=== PATIENT | female | born 1995 | race Caucasian/White ===

== ENCOUNTER 2017-03-31 08:45 | Emergency (ER) | payer BC ==
[2017-03-31] MEDS ORDERED: IBUPROFEN 600 MG TAB PO STA (09:32)
[2017-03-31] MEDS ORDERED: ACETAMINOPHEN TAB 500 MG TAB PO STA (09:32)
[2017-03-31] MEDS ORDERED: ONDANSETRON ODT 4 MG TAB PO STA (09:39)
[2017-03-31 10:09] VITALS: RESP 19
--- NOTE | 2017-03-31 10:29 | XR ---
EXAMINATION TYPE: XR chest 2V DATE OF EXAM: 03/31/2017 COMPARISON: NONE INDICATION: Cough flulike symptoms fever TECHNIQUE: Frontal and lateral views of the chest are obtained. FINDINGS: The heart size is normal. The pulmonary vasculature is normal. The lungs are clear. IMPRESSION: 1. No acute pulmonary process.
[2017-03-31] MEDS ORDERED: SODIUM CHLORIDE 0.9% 1,000 ML IV STA (10:54)
--- NOTE | 2017-03-31 10:59 | ED ---
General Adult HPI - General Chief complaint: Fever Stated complaint: Dx STREP, POSS PNEUMONIA Time Seen by Provider: 03/31/17 09:22 Source: patient, family, RN notes reviewed Mode of arrival: ambulatory Limitations: no limitations - History of Present Illness Initial comments: Patient 21-year-old female no significant past medical history, presenting to the emergency room today with chief complaint of strep throat and increased bodyaches and fever. Patient doesn't that she was diagnosed with strep throat 3 days ago. Started on antibiotics taking amoxicillin twice a day 500 mg. She states that she began having some body aches last night. She states she has had some fevers. Feeling hot and cold or chills. Patient does admit to cough congestion. She denies any other complaints or symptoms currently. Patient denies any recent shortness of breath, chest pain, back pain, abdominal pain, vomiting, numbness or tingling, dysuria or hematuria, constipation or diarrhea, visual changes, or any other complaints. - Related Data Home Medications Medication Instructions Recorded Confirmed Amoxicillin 1,000 mg PO DAILY 03/31/17 03/31/17 Etonogestrel [Nexplanon] 1 implant SQ [id number] 03/31/17 03/31/17 Ibuprofen 200 - 800 mg PO Q6H PRN 03/31/17 03/31/17 Previous Rx's Medication Instructions Recorded Amoxicillin 500 mg PO DAILY #10 day 03/31/17 Ondansetron Odt [Zofran ODT] 4 mg PO Q8HR PRN #20 tab 03/31/17 Oseltamivir [Tamiflu] 75 mg PO Q12HR 5 Days cap 03/31/17 Allergies Allergy/AdvReac Type Severity Reaction Status Date / Time No Known Allergies Allergy Verified 03/31/17 09:26 Review of Systems ROS Statement: Those systems with pertinent positive or pertinent negative responses have been documented in the HPI. ROS Other: All systems not noted in ROS Statement are negative. Past Medical History Past Medical History: Hyperlipidemia History of Any Multi-Drug Resistant Organisms: None Reported Past Surgical History: No Surgical Hx Reported Past Psychological History: Anxiety Smoking Status: Never smoker Past Alcohol Use History: Occasional Past Drug Use History: None Reported General Exam - General Exam Comments Initial Comments: General: The patient is awake and alert, in no distress, and does not appear acutely ill. Eye: Pupils are equal, round and reactive to light, extra-ocular movements are intact. No nystagmus. There is normal conjunctiva bilaterally. No signs of icterus. Ears, nose, mouth and throat: There are moist mucous membranes and no oral lesions. Neck: The neck is supple, there is no tenderness or JVD. Cardiovascular: There is a regular rate and rhythm. No murmur, rub or gallop is appreciated. Respiratory: Lungs are clear to auscultation, respirations are non-labored, breath sounds are equal. No wheezes, stridor, rales, or rhonchi. Musculoskeletal: Normal ROM, no tenderness. Strength 5/5. Sensation intact. Pulses equal bilaterally 2+. Neurological: A&O x 3. CN II-XII intact, There are no obvious motor or sensory deficits. Coordination appears grossly intact. Speech is normal. Skin: Skin is warm and dry and no rashes or lesions are noted. Psychiatric: Cooperative, appropriate mood & affect, normal judgment. Limitations: no limitations Course Vital Signs 03/31/17 03/31/17 08:54 10:08 Temperature 100.8 F H 102.3 F H Pulse Rate 112 H 109 H Respiratory 18 19 Rate Blood Pressure 139/62 125/65 O2 Sat by Pulse 100 98 Oximetry Medical Decision Making - Medical Decision Making Patient reexamined at this time shows no signs of distress she is tolerating by mouth fluids here in emergency room. She does state she feels very dry and states that she would like to have IV prior to being discharged. She states that she feel more comfortable this way. Patient was given some nausea medication for her nausea will be discharged home and started on Tamiflu. She' ll have an imbalance continue with amoxicillin but however she is only taking 2 pills twice a day and advised to begin starting to take 3 times daily. Advised patient that she should follow-up family doctor return here to the emergency room symptoms increase worsen or for any other concerns. - Lab Data Lab Results 03/31/17 Range/Units 09:36 Urine HCG, Qual Not Detected (Not Detectd) Disposition Clinical Impression: Strep throat, Influenza Disposition: HOME SELF-CARE Condition: Good Instructions: Influenza (ED) Additional Instructions: Please use medication as discussed. Please follow-up with family doctor in the next 2 days of symptoms have not improved. Please return to emergency room if the symptoms increase or worsen or for any other concerns. Prescriptions: Amoxicillin 500 mg PO DAILY #10 day Ondansetron Odt [Zofran ODT] 4 mg PO Q8HR PRN #20 tab PRN Reason: Nausea Oseltamivir [Tamiflu] 75 mg PO Q12HR 5 Days cap Referrals: Kerrie Simmons III, MD [Primary Care Provider] - 1-2 days Time of Disposition: 10:57
[2017-03-31 11:57] VITALS: BP 119/58; PULSE 96; TEMP 98.9
== END 2017-03-31 12:23 | disposition home or self-care (01) ==
LOC: EC 08:45
DX: J11.1 Influenza due to unidentified influenza virus with other respiratory manifestations (principal); Z97.5 Presence of (intrauterine) contraceptive device
CPT/HCPCS: 71046; 81025; 96360; 99283

== ENCOUNTER → 2017-04-21 | Outpatient (CLI) | payer BC ==
--- NOTE | 2017-04-21 07:58 | US ---
EXAMINATION TYPE: US abdomen limited DATE OF EXAM: 04/21/2017 COMPARISON: NONE CLINICAL HISTORY: R10.11 RUQ pain/K81.1 cholecystis. EXAM MEASUREMENTS: Liver Length: 15.1 cm Gallbladder Wall: 0.2 cm CBD: 0.3 cm Right Kidney: 11.1 x 4.2 x 5.4 cm Pancreas: Tail obscured by overlying bowel gas Liver: wnl Gallbladder: wnl Evidence for sonographic Duran's sign: patient tender here CBD: wnl Right Kidney: wnl IMPRESSION: Right upper quadrant tenderness during the examination, however no sonographic evidence f or acute cholecystitis. HIDA with CCK scan could be performed to evaluate for biliary dyskinesia or c hronic cholecystitis.
--- NOTE | 2017-04-21 12:34 | NM ---
EXAMINATION TYPE: NM hepatobiliary w CCK DATE OF EXAM: 04/21/2017 COMPARISON: Ultrasound abdomen same date HISTORY: Right upper quadrant pain TECHNIQUE: After the intravenous administration of 5.3 mCi Tc 99m Mebrofenin hepatobiliary scintigrap hy is performed. Immediate images post injection. FINDINGS: There is satisfactory initial accumulation of tracer by the liver. The gallbladder is visualized wit hin 6 minutes. The small bowel activity is noted within a minutes. At one hour CCK was administered , patient was injected with 1.75 mcg of Kinevac, and gallbladder ejection fraction is calculated at 8 4 %. Therefore there is no scintigraphic evidence of cystic or common bile duct obstruction to sugge st acute cholecystitis or gallbladder dyskinesia. IMPRESSION: No evidence of cystic duct obstruction. The bladder ejection fraction is 84%, patient exp erienced nausea with Kinevac administration
== END | disposition home or self-care (01) ==
LOC: RADUSMAIN 06:59
PROVIDERS: ATTEND Surgery
DX: R10.811 Right upper quadrant abdominal tenderness (principal); K81.1 Chronic cholecystitis
CPT/HCPCS: 76705; 78227; A9537; J2805

== ENCOUNTER 2017-05-12 06:47 | Day surgery (SDC) | payer BC ==
[2017-05-10 08:57] VITALS: BMI 29.3
[~2017-05-12 06:47] MED LIST: DEXAMETHASONE SOD PHOSPHATE 10 MG/ML 1 ML VIAL IV ONE; HEPARIN SODIUM,PORCINE 5,000 UNIT/ML 1 ML VIAL SQ ONE; LACTATED RINGERS 1,000 ML IV SCH; LIDOCAINE 1% 20 ML VIAL (10MG/ML) FOR IV START INTRADERMA PRN; MIDAZOLAM 2 MG/2 ML VIAL IV PRN; MORPHINE SULFATE 4 MG/ML SYRINGE IV PRN; ONDANSETRON 4 MG/2 ML VIAL IVP ONE; SCOPOLAMINE 1.5MG/72HR PATCH TRANSDERM ONE; ceFAZolin IN SWFI 2 GM/20 ML SYRINGE IVP ONE
--- NOTE | 2017-05-12 07:58 | P.GSHP ---
History of Present Illness H&P Date: 05/12/17 Chief Complaint: Right upper quadrant pain This a 21-year-old female who's had complaints of right quadrant pain. Her recent HIDA scan shows abnormal ejection fraction. Patient will undergo laparoscopic ostectomy for chronic cholecystitis. Past Medical History Past Medical History: Hyperlipidemia Additional Past Medical History / Comment(s): gallbladder disorder History of Any Multi-Drug Resistant Organisms: None Reported Past Surgical History: No Surgical Hx Reported Additional Past Surgical History / Comment(s): egd Past Anesthesia/Blood Transfusion Reactions: Family History of Problems w/ Anesthesia Additional Past Anesthesia/Blood Transfusion Reaction / Comment(s): PONV, MOTION SICKNESS Smoking Status: Never smoker - Past Family History Father Family Medical History: Cancer, Deep Vein Thrombosis (DVT) Medications and Allergies Home Medications Medication Instructions Recorded Confirmed Type Etonogestrel [Nexplanon] 1 implant SQ ONCE 03/31/17 05/12/17 History Fexofenadine HCl [Lisa Allergy] 180 mg PO DAILY 05/10/17 05/12/17 History Fluticasone Nasal [place] [Flonase 2 spr EA NOSTRIL DAILY 05/10/17 05/12/17 History Nasal [place]] Allergies Allergy/AdvReac Type Severity Reaction Status Date / Time No Known Allergies Allergy Verified 05/10/17 08:51 Surgical - Exam Vital Signs Temp Pulse Resp BP Pulse Ox 97.5 F L 78 16 113/69 95 05/12/17 07:05 05/12/17 07:05 05/12/17 07:05 05/12/17 07:05 05/12/17 07:05 - General well developed, no distress - Eyes PERRL - ENT normal pinna - Neck no masses - Respiratory normal expansion - Cardiovascular Rhythm: regular - Abdomen Abdomen: soft, non tender Assessment and Plan Assessment: Chronic cholecystitis. We'll perform laparoscopic cholecystectomy.
[2017-05-12] MEDS ORDERED: PROPOFOL 10 MG/ML 20 ML VIAL IV ONE (08:01)
[2017-05-12] MEDS ORDERED: MIDAZOLAM 2 MG/2 ML VIAL ONE (08:01)
[2017-05-12] MEDS ORDERED: fentaNYL (PF) 50 MCG/ML 2 ML AMP ONE (08:01)
[2017-05-12] MEDS ORDERED: GLYCOPYRROLATE 0.2 MG/ML 2 ML VIAL ONE (08:01)
[2017-05-12] MEDS ORDERED: ROCURONIUM BROMIDE 10 MG/ML 10 ML VIAL IV ONE (08:01)
[2017-05-12] MEDS ORDERED: KETOROLAC 30 MG/ML 1 ML VIAL ONE (08:01)
[2017-05-12] MEDS ORDERED: SUCCINYLCHOLINE CHLORIDE 100 MG/5 ML SYR IV ONE (08:01)
[2017-05-12] MEDS ORDERED: NEOSTIGMINE 1 MG/ML 10 ML VIAL ONE (08:01)
[2017-05-12] MEDS ORDERED: LIDOCAINE 1% INJ 10MG/ML (20 ML MDV) ONE (08:01)
[2017-05-12] MEDS ORDERED: BUPIVACAINE (PF) 0.5% 30 ML VIAL SQ ONE (08:21)
[2017-05-12 08:54] VITALS: TEMP 97.3
[2017-05-12 09:08] VITALS: RESP 16
[2017-05-12] MEDS ORDERED: MORPHINE SULFATE 4 MG/ML SYRINGE IVP ONE (09:25)
[2017-05-12] MEDS ORDERED: LACTATED RINGERS 1,000 ML IV ONE (10:00)
[2017-05-12] MEDS ORDERED: HYDROcodone/APAP 7.5-325MG 1 EACH TAB PO ONE (10:22)
[2017-05-12] MEDS ORDERED: METOCLOPRAMIDE 5 MG/ML 2 ML VIAL IVP STA (11:34)
[2017-05-12 12:02] VITALS: BP 111/72; PULSE 67
--- NOTE | 2017-05-25 12:24 | P.OP ---
Date of Procedure: 05/25/17 Preoperative Diagnosis: Chronic cholecystitis Postoperative Diagnosis: Chronic cholecystitis Procedure(s) Performed: Laparoscopic cholecystectomy Anesthesia: KARY Surgeon: Favian Dumont Estimated Blood Loss (ml): 5 Pathology: other (gAll bladder) Condition: stable Disposition: PACU Description of Procedure: The patient was placed on the operating table. The patient received a general endotracheal tube anesthesia. The patients abdomen was prepped and draped in the usual sterile fashion. Through an infraumbilical stab incision, the fascia of the anterior abdominal wall was grasped with a pair of Kochers and then the Veress needle was placed in the peritoneal cavity. Position of the Veress needle was confirmed with positive drop test. The abdomen was then insufflated. After adequate insufflation, the 10 mm trocar was placed in the peritoneal cavity. Following this the laparoscope was placed in the peritoneal cavity. The patient was placed in the head-up, right side up position and then a 5 mm trocar was placed in the right lateral and right subcostal position under direct visualization. A 8 mm trocar was placed in the epigastric position. The gallbladder was grasped in the fundus and infundibulum. Traction on the gallbladder was placed in the lateral and the cephalad positions. The triangle of Calot was visualized.. The cystic duct was bluntly dissected until the union of the cystic duct and common bile duct was seen. The cystic duct was then divided and sealed with the Harmonic scissors. A PDS Endoloop was then placed throughout the cystic duct stump. The cystic artery divided and sealed with the Harmonic scissors. The gallbladder was then removed from the liver bed using Harmonic scissors. The gallbladder was then extracted through the epigastric port site. Operative field was checked for any bleeding spots and Harmonic scissors was used to coagulate the liver bed. The abdomen was irrigated. The trocars were removed. The skin was closed using interrupted 3-0 Vicryl suture. Dermabond dressing were applied. The patient tolerated the procedure well.
== END 2017-05-12 12:23 | disposition home or self-care (01) ==
LOC: OR 06:47
PROVIDERS: ATTEND Surgery
DX: K81.1 Chronic cholecystitis (principal); E78.5 Hyperlipidemia, unspecified; K21.9 Gastro-esophageal reflux disease without esophagitis; Z79.1 Long term (current) use of non-steroidal anti-inflammatories (NSAID); Z79.899 Other long term (current) drug therapy; Z79.51 Long term (current) use of inhaled steroids; Z88.0 Allergy status to penicillin
CPT/HCPCS: 81025; 88304; 47562; J2250; J2270; J1644; J1100; J2710; J2765; J2405; J2001; J3010; J1885; J0330; J2704; J0690

== ENCOUNTER → 2017-07-28 | Outpatient (CLI) | payer BC ==
--- NOTE | 2017-07-28 13:22 | US ---
EXAMINATION TYPE: US thyroid st tissue head/neck DATE OF EXAM: 07/28/2017 COMPARISON: NONE CLINICAL HISTORY: E07.9 Disorder of thyroid, unspecified. Abnormal physical exam by per patient. GLAND SIZE: Right Lobe: 5.0 x 1.7 x 1.4 cm Overall Parenchyma: homogenous Left Lobe: 4.9 x 1.6 x 1.5 cm Overall Parenchyma: homogeneous Isthmus Thickness: 0.3 cm NODULES RIGHT: # of nodules measured on right: 0 LEFT: # of nodules measured on left: 0 ISTHMUS: # of nodules measured in the isthmus: 0 Bilateral neck scanned, no evidence of lymphadenopathy. There is normal size fairly homogeneous thyroid without discrete nodule seen on images saved. IMPRESSION: Unremarkable study.
== END | disposition home or self-care (01) ==
LOC: RADUSWWP 12:49
PROVIDERS: ATTEND Family Medicine
DX: E07.9 Disorder of thyroid, unspecified (principal)
CPT/HCPCS: 76536

== ENCOUNTER → 2019-07-02 | Outpatient (CLI) | payer BC ==
--- NOTE | 2019-07-02 12:00 | XR ---
EXAMINATION TYPE: XR humerus LT DATE OF EXAM: 07/02/2019 CLINICAL HISTORY: nexplano placement TECHNIQUE: Frontal and lateral images of the left humerus are obtained. COMPARISON: None. FINDINGS: There is no acute fracture/dislocation evident. The joint spaces appear within normal limi ts. Nexplano placement is noted within the medial soft tissues approximately 9 cm from the medial ep icondyle. IMPRESSION: As above. ICD 10 NO FRACTURE, INITIAL EVALUATION
== END | disposition home or self-care (01) ==
LOC: RADXRMAIN 10:49
PROVIDERS: ATTEND Obstetrics & Gynecology
DX: S63.005A Unspecified dislocation of left wrist and hand, initial encounter (principal)

== ENCOUNTER 2023-12-25 19:46 | Outpatient (CLI) | payer OTHER ==
[2023-12-25 20:37] LABS: Appearance,Urine Cloudy (Clear); Bacteria,Urine Occasional /hpf; Bilirubin,Urine Negative (Negative); Blood,Urine Negative (Negative); Color,Urine Colorless; Glucose,Urine (UA) Negative (Negative); Ketones,Urine 1+ (Negative); Leukocyte Esterase,Urine Negative (Negative); Mucus,Urine Rare /hpf; Nitrite,Urine Negative (Negative); PH, Urine 6.5 (5.0-8.0); Protein,Urine Negative (Negative); Specific Gravity,Urine 1.006 (1.001-1.035); Squamous Epithelial Cell,Urine 2 /hpf (0-4); Urobilinogen,Urine <2.0 mg/dL (<2.0); WBC,Urine 3 /hpf (0-5)
[2023-12-25 22:20] VITALS: BP 130/74; PULSE 110; RESP 16; TEMP 97.6
--- NOTE | 2024-01-12 14:52 | P.MSEPDOC ---
Presenting Problems - Arrival Data Date of Arrival on Unit: 12/25/23 Time of Arrival on Unit: 19:46 Mode of Transport: Ambulatory - Complaint OB-Reason for Admission/Chief Complaint: Decreased Movement, Pain Medical History - Information : 1 Para: 0 Term: 0 : 0 Abortions: Spontaneous or Elective: 0 Number of Living Children: 0 - Gestational Age Gestational Age by CLEMENTINA (wks/days): 35 Weeks and 5 Days - History Comment: IVF Review of Systems - Review of Systems Constitutional: No problems Breast: No problems ENT: No problems Cardiovascular: No problems Respiratory: No problems Gastrointestinal: No problems Genitourinary: No problems Musculoskeletal: No problems Neurological: No problems Skin: No problems Vital Signs - Temperature Temperature: 97.6 F Temperature Source: Oral - Pulse Right Brachial Pulse Rate: 110 Pulse Assessment Method: Automatic Cuff - Respirations Respiratory Rate: 16 Oxygen Delivery Method: Room Air O2 Sat by Pulse Oximetry: 97 - Blood Pressure Right Arm Blood Pressure: 130/74 Blood Pressure Mean: 92 Blood Pressure Source: Automatic Cuff Medical Screen Scoring - Uterine Contractions Frequency From (mins): 2 Frequency To (mins): 7 Duration From (seconds): 50 Duration To (seconds): 70 Intensity: Mild Resting: Soft to palpation - Assessment - Baby A Baseline FHR: 135 Heart Rate - NICHD Category: Category I (Normal) NST: Reactive Physician Notification - Physician Notified Physician Notified Date: 12/25/23 Physician Notified Time: 20:19 Physician: Cielo Perales Order Received: Yes - Notification Comment Comment: 2018- Dr. Perales called with report on patient that presents to [facility] for decreased etal movement, pressure and back pain rated 5/10. Cervical exam closed/thick/-2, contractions 2-5 minutes apart, patient appears comfort able but reports feeling the tighness in her abdomen, cat 1 heart tones, vitals reviewed. Orders received to send urinealysis, orally hydrate, and repeat cervical exam in 1 hour. 2103- Dr. Perales called for update and orders. UA results reviewed. Patient to be rechecked after 2 hours, if cervical exam remaisn the same and patient remains comfortable she may be discharged home. 2216- Dr. Perales updated on patient cervical exam that remains the same, updated on variable, then return to cat 1 heart tones. Patient to be discharged home. Maternal Triage Index - Maternal Triage Index Presenting for scheduled procedure w/no complaint: No - Stat/Priority 1 Stat Priority 1: No - Urgent/Priority 2 Urgent Priority 2: Yes Provider Notified: Cielo Perales Provider Notified Time: 20:19 Criteria Met for Priority 2: decreased movement Disposition - Disposition OB Disposition: Discharge to home Discharge Date: 12/25/23 Discharge Time: 22:19 I agree with the RN Medical Screening Exam: Yes Physician's MSE Comment: I have neither seen nor examined the patient Case reviewed; plan agreed upon as documented in EMR&OBIX.: Yes Diagnosis: DECREASED MOVEMENTS, THIRD TRIMESTER, UNSP
== END 2023-12-25 22:23 ==
LOC: FBPOP 19:46
PROVIDERS: ATTEND Obstetrics & Gynecology
DX: O36.8131 Decreased fetal movements, third trimester, fetus 1 (principal); Z3A.35 35 weeks gestation of pregnancy; Z88.5 Allergy status to narcotic agent; Z91.018 Allergy to other foods
CPT/HCPCS: 59025; 81001; G0463; 99213

== ENCOUNTER 2024-01-12 17:27 | Outpatient (CLI) | payer OTHER ==
[2024-01-12 19:21] VITALS: BP 133/84; PULSE 99; RESP 17; TEMP 97.3
--- NOTE | 2024-01-14 06:34 | P.MSEPDOC ---
Presenting Problems - Arrival Data Date of Arrival on Unit: 01/12/24 Time of Arrival on Unit: 17:27 Mode of Transport: Ambulatory - Complaint OB-Reason for Admission/Chief Complaint: Possible Onset of Labor Comment: pt presents to triage for possible labor, c/o ctx's every 4 min Medical History - Information : 1 Para: 0 Term: 0 : 0 Abortions: Spontaneous or Elective: 0 Number of Living Children: 0 - Gestational Age Gestational Age by CLEMENTINA (wks/days): 38 Weeks and 2 Days Review of Systems - Review of Systems Constitutional: No problems Breast: No problems ENT: No problems Cardiovascular: No problems Respiratory: No problems Gastrointestinal: No problems Genitourinary: No problems Musculoskeletal: No problems Neurological: No problems Skin: No problems Vital Signs - Temperature Temperature: 97.3 F Temperature Source: Temporal Artery Scan - Pulse Right Brachial Pulse Rate: 99 Pulse Assessment Method: Automatic Cuff - Respirations Respiratory Rate: 17 Oxygen Delivery Method: Room Air O2 Sat by Pulse Oximetry: 99 - Blood Pressure Right Arm Blood Pressure: 133/84 Blood Pressure Mean: 100 Blood Pressure Source: Automatic Cuff Medical Screen Scoring - Cervical Exam Dilation (cm): 0.5 Effacement (%): 90 Station: -2 Membranes: Intact - Uterine Contractions Intensity: Mild Resting: Soft to palpation - Assessment - Baby A Baseline FHR: 140 Heart Rate - NICHD Category: Category I (Normal) NST: Reactive Physician Notification - Physician Notified Physician Notified Date: 01/12/24 Physician Notified Time: 18:51 Physician: Cooper Bryan Order Received: Yes - Notification Comment Comment: reactive nst, no cervical changes over an hour, Maternal Triage Index - Maternal Triage Index Presenting for scheduled procedure w/no complaint: No - Stat/Priority 1 Stat Priority 1: No - Urgent/Priority 2 Urgent Priority 2: No - Prompt/Priority 3 Prompt Priority 3: Yes Criteria Met for Priority 3: pt presents to triage for possible labor, c/o ctx's every 4 min Disposition - Disposition OB Disposition: Triage, Discharge to home, Written follow up instructions reviewed Discharge Date: 01/12/24 Discharge Time: 19:05 I agree with the RN Medical Screening Exam: Yes Physician's MSE Comment: I have neither seen nor examined the patient. Case reviewed; plan agreed upon as documented in EMR&OBIX.: Yes Diagnosis: RELATED CONDITIONS, UNSPECIFIED, THIRD TRIMESTER
== END 2024-01-12 19:05 | disposition home or self-care (01) ==
LOC: FBPOP 17:27
PROVIDERS: ATTEND Obstetrics & Gynecology
DX: O47.1 False labor at or after 37 completed weeks of gestation (principal); Z3A.38 38 weeks gestation of pregnancy; Z88.8 Allergy status to other drugs, medicaments and biological substances; Z88.5 Allergy status to narcotic agent
CPT/HCPCS: 59025; 99213

== ENCOUNTER 2024-01-19 18:00 | Inpatient (IN) | payer OTHER ==
[2024-01-19] MEDS ORDERED: miSOPROStoL 200 MCG TAB PO PRN (18:44)
[2024-01-19] MEDS ORDERED: OXYTOCIN 10 UNIT/ML 1 ML VIAL IM PRN (18:44)
[2024-01-19] MEDS ORDERED: METHYLERGONOVINE 0.2 MG/ML 1 ML AMP IM PRN (18:44)
[2024-01-19] MEDS ORDERED: miSOPROStoL 200 MCG TAB RECTAL PRN (18:44)
[2024-01-19] MEDS ORDERED: CARBOPROST TROMETHAMINE 250 MCG/ML 1 ML AMP IM PRN (18:44)
[2024-01-19] MEDS ORDERED: TERBUTALINE 1 MG/ML VIAL SQ PRN (18:44)
[2024-01-19] MEDS ORDERED: TRANEXAMIC 1,000 MG/100ML-NACL 1,000 MG in EMPTY BAG 1 BAG IV PRN (18:44)
--- NOTE | 2024-01-19 19:03 | P.HPOB ---
History of Present Illness H&P Date: 01/19/24 Chief Complaint: Induction of labor Ms. Alves is a 28 year old at 39 weeks and 2 days with EDC of 01/24/2024 who presents for elective induction of labor. Her is an IVF . She has received surveillance for this indication which has been reass uring. During the first trimester she had a noted subchorionic hematoma that has since resolved on imaging. In addition, the patient was noted to have an ASC-H pap smear with ZENIA 2-3 on ectocervical biopsy. Referral to [facility] operator onc for cosultation and serial colposcopy throughout the was recommended, however, the patient declined. The fetus is estimated in the 66%ile for growth based on a 32 week US. labs: blood type O positive, antibody screen negative, rubella non- immune, VDRL non-reactive, HBsAg negative, HIV negative, HCV non-reactive, gonorrhea negative, chlamydia negative, 1 hour GTT wnl, GBS negative. s/p TDap during the third trimester. Past Medical History Past Medical History: Hyperlipidemia Additional Past Medical History / Comment(s): gallbladder disorder History of Any Multi-Drug Resistant Organisms: None Reported Past Surgical History: No Surgical Hx Reported Additional Past Surgical History / Comment(s): egd Past Anesthesia/Blood Transfusion Reactions: Family History of Problems w/ Anesthesia Additional Past Anesthesia/Blood Transfusion Reaction / Comment(s): PONV, MOTION SICKNESS Smoking Status: Never smoker - Past Family History Father Family Medical History: Cancer, Deep Vein Thrombosis (DVT) Medications and Allergies Home Medications Medication Instructions Recorded Confirmed Type Vit No.179/Iron/Folic 1 tab PO DAILY 12/25/23 01/19/24 History [ Tablet] metFORMIN HCL [metFORMIN HCL ER] 750 mg PO DAILY 01/19/24 01/19/24 History Allergies Allergy/AdvReac Type Severity Reaction Status Date / Time strawberry Allergy Anaphylaxis Verified 01/19/24 18:33 hydrocodone [From [place]] AdvReac Nausea & Verified 01/19/24 18:30 Vomiting Exam Intake and Output 01/19/24 01/19/24 01/19/24 06:59 14:59 22:59 Other: Weight 110.677 kg Focused physical exam is performed. This is a healthy-appearing in no apparent distress. Breathing is non-labored. Abdomen is gravid and non-tender. Cervical exam is fingertip, long, and high. A sterile speculum is used to place a cooks catheter with 60cc in each balloon. Extremities non-tender and non- edematous. heart tones are reactive and reassuring on NST. Assessment and Plan Assessment: 28 year old at 39 weeks and 2 days with IVF presenting for IOL Plan: Admit, low-dose pitocin with cooks catheter x12 hours, IV nubain prn pain, continuous EFM and tocometer, clear liquid diet.
[2024-01-19] MEDS ORDERED: ONDANSETRON 4 MG/2 ML VIAL IVP PRN (19:04)
[2024-01-19 19:35] LABS: Basophils % (A) 0 %; Eosinophils # (A) 0.1 k/uL (0-0.7); Eosinophils % (A) 1 %; HCT 40.4 % (34.0-46.0); HGB 13.4 gm/dL (11.4-16.0); Lymphocytes # (A) 1.8 k/uL (1.0-4.8); Lymphocytes % (A) 17 %; MCH 32.6 pg (25.0-35.0); MCHC 33.2 g/dL (31.0-37.0); MCV 98.2 fL (80.0-100.0); Mean Platelet Volume 7.8; Monocytes # (A) 0.4 k/uL (0-1.0); Monocytes % (A) 4 %; Neutrophils # (A) 7.8 k/uL (1.3-7.7); Neutrophils % (A) 76 %; Platelet Count 300 k/uL (150-450); RBC 4.12 m/uL (3.80-5.40); RDW 13.3 % (11.5-15.5); WBC 10.3 k/uL (3.8-10.6)
[2024-01-19] MEDS: LACTATED RINGERS 1,000 ML IV SCH (20:04)
[2024-01-19] MEDS: OXYTOCIN 30 UNITS/500 ML NS 30 UNIT in SALINE 1 500ML.BAG IV SCH (20:15)
[2024-01-19] MEDS: NALBUPHINE 10 MG/ML (10 ML MDV) IV PRN (20:29)
[2024-01-20] MEDS ORDERED: ROPIVACAINE 5 MG/ML 30 ML VIAL ONE (09:34)
[2024-01-20] MEDS ORDERED: fentaNYL (PF) 50 MCG/ML 5 ML AMP ONE (09:34)
[2024-01-20] MEDS ORDERED: SODIUM CHLORIDE 0.9% 250 ML BAG ONE (09:34)
[2024-01-20] MEDS ORDERED: diphenhydrAMINE 50 MG/ML 1 ML VIAL IVP PRN ×2 (13:28)
[2024-01-20] MEDS ORDERED: SIMETHICONE 80 MG CHEWABLE PO PRN (13:28)
[2024-01-20] MEDS ORDERED: ZOLPIDEM 5 MG TAB PO PRN (13:28)
[2024-01-20] MEDS ORDERED: diphenhydrAMINE 25 MG CAP PO PRN (13:28)
[2024-01-20] MEDS ORDERED: BENZOCAINE/MENTHOL SPRAY 1 GM/SPRAY AEROSOL TOPICAL PRN ×3 (13:28→17:09)
[2024-01-20] MEDS ORDERED: HYDROCORTISONE 2.5% RECTAL CREAM 30 GM TUBE RECTAL PRN (13:28)
[2024-01-20] MEDS ORDERED: diphenhydrAMINE 50 MG CAP PO PRN (13:28)
[2024-01-20] MEDS ORDERED: LANOLIN CREAM 1 GM TUBE TOPICAL PRN (13:28)
--- NOTE | 2024-01-20 13:28 | P.PROBDLV ---
Vaginal Delivery Note - . Vaginal Delivery Note: DATE OF SERVICE: 01/20/2024 PROCEDURE: Normal Vaginal Delivery ATTENDING: Dr. Cielo Perales MD ESTIMATED BLOOD LOSS: 100 mL FINDINGS: VFI, Apgars 9/9. Weight pending. PROCEDURE: Ms. Alves is a 28 year old at 39 weeks and 3 days presenting to labor and delivery for induction of labor. The is an IVF . For further details, please review the admitting H&P. Cooks catheter was placed yesterday evening with low-dose oxytocin. The cooks was removed 12 hours later and AROM was undertaken at 751 revealing clear amniotic fluid. The patient received epidural anesthesia per her requset. She had Category II heart tones in active labor with interrmitent to recurrent late and early decelerations that improved with position changes. The patient was completely dilated at 1237. She pushed effectively with Category I to II heart tones. A viable female infant was delivered at 1309 over an intact perineum. The was placed on the maternal abdomen and bulb suctioned. The infant was noted to be spontaneously crying. Cord was clamped and cut after a 60-second delay. The was handed off to the pediatric team. Placenta was delivered whole with gentle cord traction. Oxytocin was started to facilitate uterine tone. Uterine fundus was found to be firm and below the umbilicus upon fundal massage. Thorough examination of the cervix, vagina, periurethral area, and perineum revealed a small posterior vaginal wall laceration that was infiltrated with lidocaine and repaired with 2-0 Vicryl in a figure of eight fashion. The patient is stable and allowed to begin the bonding process.
[2024-01-20] MEDS: LIDOCAINE 0.5% (PF) 5 MG/ML (50 ML SDV) SQ PRN (13:47)
[2024-01-20] MEDS: IBUPROFEN 800 MG TAB PO SCH (15:32)
[2024-01-20] MEDS: MEASLES-MUMPS-RUBELLA VACC/PF 12,500 UNIT/0.5 ML VIAL SQ ONE (16:07)
[2024-01-20] MEDS: ACETAMINOPHEN TAB 500 MG TAB PO SCH (16:07)
[2024-01-20] MEDS: SENNOSIDES-DOCUSATE SODIUM 1 EACH TAB PO SCH (19:44)
[2024-01-21 08:40] LABS: Basophils % (A) 0 %; Eosinophils # (A) 0.1 k/uL (0-0.7); Eosinophils % (A) 1 %; HCT 36.7 % (34.0-46.0); HGB 12.1 gm/dL (11.4-16.0); Lymphocytes # (A) 1.9 k/uL (1.0-4.8); Lymphocytes % (A) 16 %; MCH 32.6 pg (25.0-35.0); MCHC 33.1 g/dL (31.0-37.0); MCV 98.6 fL (80.0-100.0); Mean Platelet Volume 7.6; Monocytes # (A) 0.5 k/uL (0-1.0); Monocytes % (A) 4 %; Neutrophils # (A) 9.3 k/uL (1.3-7.7); Neutrophils % (A) 77 %; Platelet Count 221 k/uL (150-450); RBC 3.72 m/uL (3.80-5.40); RDW 13.4 % (11.5-15.5); WBC 11.9 k/uL (3.8-10.6)
[2024-01-21 08:47] VITALS: BP 136/75; PULSE 93; RESP 16; TEMP 98.1
--- NOTE | 2024-01-21 09:13 | P.DS ---
Providers Date of admission: 01/19/24 18:01 Expected date of discharge: 01/21/24 Attending physician: Cielo Perales MD Primary care physician: Stated None Hospital Course: Ms. Alves is a 28 year old now PPD#1 s/p normal vaginal delivery after induction of labor at 39 weeks. Her labor and delivery were uncomplicated and she has been doing very well . She desires discharge home today. The patient is doing well this morning and had no acute events overnight. She has no complaints this morning. She reports minimal lochia, passing flatus, voiding without difficulty, ambulating, and eating/drinking without nausea or vomiting. Infant doing well at bedside, nursing well. She denies chest pain, shortness of breathing, fevers, or chills overnight. She denies pain or swelling in the legs. restrictions are reviewed with the patient including pelvic rest for 6 weeks. The patient is encouraged to call the office if she experiences any heavy bleeding, foul-smelling discharge, breast complaints, or any if she has any other concerns. She will follow up in the office with in 6 weeks for exam. She plans to take Motrin and Tylenol as needed OTC. All questions are answered. Assessment: 28 year old now PPD#1 s/p Patient Condition at Discharge: Good Plan - Discharge Summary New Discharge Prescriptions: No Action metFORMIN HCL [metFORMIN HCL ER] 750 mg PO DAILY Vit No.179/Iron/Folic [ Tablet] 1 tab PO DAILY Discharge Medication List Vit No.179/Iron/Folic [ Tablet] 1 tab PO DAILY 12/25/23 [History] metFORMIN HCL [metFORMIN HCL ER] 750 mg PO DAILY 01/19/24 [History] Follow up Appointment(s)/Referral(s): Cielo Perales MD [STAFF PHYSICIAN] - 6 Weeks Activity/Diet/Wound Care/Special Instructions: Instructions 1. Do not begin any exercise program for 3 weeks. 2. Do not resume sexual relations for 6 weeks or longer if uncomfortable. 3. You may take tub baths or showers at any time. 4. You may use tampons if desired after 6 weeks. 5. Keep any areas repaired with stitches clean and dry. 6. If you are not nursing, wear a good fitting, supportive bra during the day and limit fluid intake for at least 1 week to prevent breast engorgement. 7. Call the office, , within the next week to make appointment for your 6 week checkup if it has not already been made. 8. Report any of the following occurrences to the doctor promptly: a. Heavy, excessive bleeding b. Chills, fever c. Burning or frequency of urination d. Pain or redness and breasts if nursing e. Increasing pain or swelling of vulva (stitches). In addition to the above instructions, the following additional should be followed: 1. No heavy lifting or straining (exercising) until after 6 week checkup. 2. Keep abdominal incision clean and dry: You may wear a dressing if more comfortable. 3. Make office appointment for 2 weeks after delivery date. Discharge Disposition: HOME SELF-CARE
== END 2024-01-21 15:05 | disposition home or self-care (01) | DRG 806 ==
LOC: 4FBP 18:01
PROVIDERS: ADMIT Obstetrics & Gynecology; ATTEND Obstetrics & Gynecology
PROC: 0KQM0ZZ Repair Perineum Muscle, Open Approach (ICD-10-PCS; principal; 2024-01-20)
PROC: 10E0XZZ Delivery of Products of Conception, External Approach (ICD-10-PCS; 2024-01-20)
PROC: 4A1HXCZ Monitoring of Products of Conception, Cardiac Rate, External Approach (ICD-10-PCS; 2024-01-20)
PROC: 10907ZC Drainage of Amniotic Fluid, Therapeutic from Products of Conception, Via Natural or Artificial Opening (ICD-10-PCS; 2024-01-20)
PROC: 3E033VJ Introduction of Other Hormone into Peripheral Vein, Percutaneous Approach (ICD-10-PCS; 2024-01-20)
DX: O76 Abnormality in fetal heart rate and rhythm complicating labor and delivery (principal); O71.4 Obstetric high vaginal laceration alone; Z37.0 Single live birth; D06.7 Carcinoma in situ of other parts of cervix; E78.5 Hyperlipidemia, unspecified; Z3A.39 39 weeks gestation of pregnancy; Z79.84 Long term (current) use of oral hypoglycemic drugs; Z87.59 Personal history of other complications of pregnancy, childbirth and the puerperium
CPT/HCPCS: 85025; 86850; 86900; 86901